=== PATIENT | female | born 1970 ===

== ENCOUNTER 2021-09-04 10:53 | Outpatient (CLI) | payer OTHER ==
[~2021-09-04 10:53] MED LIST: BACTRIM DS TABL1 TAB PO; FLAGYL I.V500 MG/100 IV; MEDROL4 MG PO; PYRIDIUM200 MG PO
== END 2021-09-04 14:52 | disposition home or self-care (01) ==
LOC: SONOGRAMA 10:53
PROVIDERS: ATTEND Pathology Anatomic Pathology & Clinical Pathology
DX: E04.1 Nontoxic single thyroid nodule (principal)

== ENCOUNTER 2025-05-05 07:56 | Outpatient (CLI) | payer OTHER | END 2025-05-05 07:58 | disposition home or self-care (01) | LOC: SONOGRAMA 07:56 | PROVIDERS: ATTEND Pathology Anatomic Pathology & Clinical Pathology | DX: D34 Benign neoplasm of thyroid gland (principal); E07.89 Other specified disorders of thyroid; E04.1 Nontoxic single thyroid nodule ==